=== PATIENT | male | born 1950 | race Caucasian/White ===

== ENCOUNTER → 2018-06-01 11:43 | Outpatient (CLI) | payer MEDICARE, OTHER, SELFPAY ==
[2018-06-03 14:21] LABS: Fecal Immunochemical Test NOT DETECTED
== END ==
PROVIDERS: PCP Family Medicine; Visit Provider Family Medicine
DX: Z12.11 Encounter for screening for malignant neoplasm of colon (principal)
CPT/HCPCS: 82274

== ENCOUNTER → 2019-10-07 10:04 | Outpatient (CLI) | payer MEDICARE, OTHER, SELFPAY ==
--- NOTE | 2019-10-07 10:07 | DI.RAD.S_ITS ---
PROCEDURE: XR CHEST 2V INDICATIONS: Shortness of breath TECHNIQUE: 2 views of the chest were acquired. COMPARISON: None. FINDINGS: Surgical changes and devices: None. Lungs and pleura: Elevation of the right hemidiaphragm. Scattered subsegmental atelectasis and/or scarring. No focal consolidation. No pleural effusions or pneumothorax. Mediastinum: Mediastinal contours are normal. Heart size is normal. Bones and chest wall: No suspicious bony abnormalities. Soft tissues appear unremarkable. IMPRESSION: Scattered subsegmental atelectasis and/or scarring. No focal consolidation. Dictated by: Sascha Horne M.D. on 10/07/2019 at 10:31 Approved by: Sascha Horne M.D. on 10/07/2019 at 10:32
== END ==
PROVIDERS: PCP Family Medicine; Referring Provider Registered Nurse; Visit Provider Registered Nurse
DX: R06.02 Shortness of breath (principal)
CPT/HCPCS: 71046

== ENCOUNTER → 2019-12-23 10:46 | Outpatient (CLI) | payer MEDICARE, OTHER, SELFPAY ==
--- NOTE | 2019-12-23 10:49 | DI.RAD.S_ITS ---
PROCEDURE: XR CHEST 2V INDICATIONS: atelectasia vs scaring with wheezing at night TECHNIQUE: 2 views of the chest were acquired. COMPARISON: [facility], CR, XR CHEST 2V, 10/07/2019, 10:14. FINDINGS: Surgical changes and devices: None. Lungs and pleura: Low lung volumes are noted. This causes a crowded appearance to the lung markings and limits evaluation. Elevation of the right hemidiaphragm is again seen. Generalized interstitial prominence is seen. No focal infiltrates are seen. No pneumothorax or pleural effusions are seen. Mediastinum: The cardiac contours are within normal limits. The aorta demonstrates calcification and tortuosity. Bones and chest wall: Age-appropriate bony degenerative changes are seen. No suspicious bony abnormalities. Soft tissues appear unremarkable. IMPRESSION: Low lung volumes with interstitial prominence. Differential diagnosis includes artifact or a incomplete inspiratory result and mild pulmonary edema. There is continued elevation the right hemidiaphragm. If there is strong clinical concern for paralysis of this hemidiaphragm, please consider a dedicated fluoroscopic sniff test for further evaluation. Dictated by: Diego Good M.D. on 12/23/2019 at 10:58 Approved by: Diego Good M.D. on 12/23/2019 at 11:00
== END ==
PROVIDERS: PCP Family Medicine; Referring Provider Family Medicine; Visit Provider Family Medicine
DX: J98.4 Other disorders of lung (principal); R06.2 Wheezing
CPT/HCPCS: 71046

== ENCOUNTER → 2020-01-10 10:42 | Outpatient (CLI) | payer MEDICARE, OTHER, SELFPAY ==
[2020-01-11 15:55] LABS: COVID19 Sendout NOT DETECTED (Not Detect)
== END ==
PROVIDERS: PCP Family Medicine; Visit Provider Registered Nurse
DX: Z01.812 Encounter for preprocedural laboratory examination (principal)
CPT/HCPCS: 87635

== ENCOUNTER → 2020-01-11 09:32 | Outpatient (CLI) | payer MEDICARE, OTHER, SELFPAY ==
[2020-01-11 11:04] LABS: Hematocrit 49.2 % (41-53); Hemoglobin 16.7 g/dL (13.5-17.5)
== END ==
PROVIDERS: PCP Family Medicine; Referring Provider Family Medicine; Visit Provider Family Medicine
DX: Z01.812 Encounter for preprocedural laboratory examination (principal)
CPT/HCPCS: 36415; 85014; 85018

== ENCOUNTER → 2020-01-13 07:59 | Outpatient (CLI) | payer MEDICARE, OTHER, SELFPAY ==
--- NOTE | 2020-01-19 10:30 | PM.PFT.1 ---
Pulmonary Function Test Referral & Results Date Patient Seen: 01/13/20 Requesting provider: Howard Mcduffie Results: The spirometry demonstrates an FVC of 2.76 L which is 72% of predicted. The FEV1 was measured at 2.36 L which is 84% of predicted. The FEV1/FVC ratio was 86 which is 115% of predicted. Following the administration of bronchodilator there was no change. Lung volumes show an SVC of 2.96 L which is 73% of predicted. The diffusing capacity was measured at 24.03 which is 89% of predicted. The maximum voluntary ventilation was normal Interpretation: This study demonstrates perhaps mild obstructive lung disease based on minimal reduction in FEV1. No evidence of improvement following bronchodilator There is a slightly more significant reduction in lung volumes suggesting more significant restrictive lung disease present Clinical correlation suggested
== END ==
PROVIDERS: PCP Family Medicine; Referring Provider Family Medicine; Visit Provider Family Medicine
DX: R06.02 Shortness of breath (principal); R06.2 Wheezing; J98.4 Other disorders of lung
CPT/HCPCS: 94060; 94726; 94729

== ENCOUNTER → 2021-11-20 12:40 | Outpatient (CLI) | payer MEDICARE, OTHER, SELFPAY ==
[2021-11-21 16:53] LABS: Tissue Transglutaminase IgA <2 U/mL (0-3); Tissue Transglutaminase IgG 2 U/mL (0-5)
== END ==
PROVIDERS: PCP Family Medicine; Referring Provider Internal Medicine Gastroenterology; Visit Provider Internal Medicine Gastroenterology
DX: R19.7 Diarrhea, unspecified (principal)
CPT/HCPCS: 36415; 83516

== ENCOUNTER → 2021-12-12 09:21 | Outpatient (CLI) | payer MEDICARE, OTHER, SELFPAY ==
--- NOTE | 2021-12-13 17:22 | DIAB.MNT ---
Initial Diabetes Medical Nutrition Therapy Assessment Name: Patrick Ortiz Date: 12/12/21 Time: 930-11a Dx: Type II Diabetes Provider: Froy Starr Learning Style: yordan Nguyen presents for initial visit with his , [place]. Reports new dx of T2DM. +FH with both parents. Recently labs indicate elevated FBG of 137 mg/dL and HgA1c of 6.8%. Also endorses significant nutrition hx with severe diarrhea (IBS-D) since he was in his 30s. Has never seen a dietitian. Has seen GI before without much improvement. Plans to see GI at . Reports he has seen a therapist and hypnotist for this as well. Diarrhea truly seems to dictate his day. If he is leaving the house, he skips meals. Always aware of where the next bathroom is. Reports that he use to live on sugar and junk food prior to diagnosis. Seems processed carbs were easier to digest in terms of diarrhea. Has since cut refined sugar out completely. Continued frequent fast food intake. h/o HLD, does not want to take a statin. Feels that they are not healthy to take. FH of heart disease. Limited knowledge about DM. He and his plan to complete entire DSME program. 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 No program. Self-Monitoring Blood Glucose: No meter. No BG checks. Does not want to check BG. Diabetes Medications: Metformin 500mg Pertinent Labs: HgA1c 6.8% Cholesterol: 291 H T H HDL: 37 L LDL: 202 H Past Medical History: (Last Updated 03/24/18 @ 17:01 by Harper Gomez) Anxiety Chicken pox Eczema Foot pain History of hand surgery Trigger point - left 3 fingers IBS (irritable bowel syndrome) Measles Mumps Plantar fasciitis, bilateral Plantar warts Rotator cuff tear Bilateral Skin cancer (2014) Status post bilateral foot surgery Plantar fasciitis Trigger point of extremity Left 3 fingers Nutrition Rx: 1600kcals ; Carbohydrates: Meal:30-45g Snack:15-30g Nutrition Diagnosis: - Excessive saturated fat intake r/t fast food intake aeb diet recall and elevated LDL - Excessive sodium intake r/t fast food intake aeb diet recall - Nutrition and food related knowledge deficit r/t new dx T2DM aeb HgA1c >6.5% - Physical inactivity r/t no program currently, stage of change preparation aeb pt report Intervention: This participant was very receptive. Provided appropriate educational handouts. Discussed the following topics: Completed intake assessment. Discussed barriers to care. Pathophysiology of T2DM HgA1c, its correlation to blood glucose numbers, and rationale for goal Benefit of SMBG if he would like more information in the future about his BG Plate Method, impact of macronutrients on blood sugar, meal timing, carbohydrate counting, pairing macronutrients and spreading out carbohydrates for better blood glucose management Recommended servings for carbohydrates at meals and snacks Heart health nutrition in detail: saturated fats, sodium, eating out= Role of physical activity Nutrition therapy for IBS-D: FODMAPS discussed as a potential trial Created SMART goals for patient self-care and success. Goals: Aim for 30-45g CHO per meal Consider reduction eating out Exercise 20-30 minutes daily Check out FODMAP online resources Follow-up: WILL MURILLO follow-up in class 1 next month. Plans to attend 3 class series. Will then f/u 1:1. Radha Erwin RDN, [facility] Certified Diabetes Care and Legal Counsel P: [phone] Thank you for this referral
== END ==
PROVIDERS: PCP Family Medicine; Referring Provider Family Medicine; Visit Provider Family Medicine
DX: E11.65 Type 2 diabetes mellitus with hyperglycemia (principal); Z79.84 Long term (current) use of oral hypoglycemic drugs; Z71.3 Dietary counseling and surveillance
CPT/HCPCS: 97802

== ENCOUNTER → 2022-01-08 09:19 | Outpatient (CLI) | payer MEDICARE, OTHER, SELFPAY ==
--- NOTE | 2022-01-10 14:31 | DIAB.FU ---
Diabetes Education Class Series: Diabetes and Nutrition Name: Patrick Ortiz Date: 01/10/22 Time: 940-11a Dx: Type II Diabetes Patrick attended class with , [place]. States he has been working on avoiding sweets. Did seem to learn he could add back some foods, ie carrots, beets, whole grains. Patrick had to leave class early today due to miscommunication about class length and prepping for colonoscopy. Class topics covered: ? Debunk nutrition myths and discuss how to sustain healthy eating long-term through moderation and variety ? Define macronutrients and determine their impact on blood sugars ? Discuss macronutrient pairing, Plate Method, and carb counting ? Review general recommendations for carbohydrates ? Practice label reading ? Discuss the role of fiber in diabetes and provide examples of sources ? Review heart health nutrition: fats, fiber, and sodium Follow-up: Diabetes Physiology and Medication Class in one week Radha Erwin RDN, [facility] Certified Diabetes Care and Coil Maker P: [phone] Thank you for this referral
== END ==
PROVIDERS: PCP Family Medicine; Referring Provider Family Medicine; Visit Provider Family Medicine
DX: E11.9 Type 2 diabetes mellitus without complications (principal); Z71.3 Dietary counseling and surveillance
CPT/HCPCS: G0109

== ENCOUNTER 2022-01-09 08:24 | Day surgery (SDC) | payer MEDICARE, OTHER, SELFPAY ==
[2022-01-09] VITALS (9 sets, daily range): BP systolic 109–189; BP diastolic 59–96; PULSE 48–52; RESP 14–19; TEMP 36.4–37.1; O2SAT 94–98; BMI 29.3
--- NOTE | 2022-01-09 | PATH_ITS ---
[facility] Accession Number: [id number] . 01 Material submitted: . PART A: colon - RIGHT COLON PART B: colon - LEFT COLON . 01 Clinical history: . A-B: R/O MICROSCOPIC COLITIS . 01 Diagnosis: A-B. Right Colon, Left Colon, Biopsies: Colonic mucosa with no diagnostic abnormality. Negative for active, chronic, and microscopic colitis. Negative for dysplasia and malignancy. . MRV 01/14/2022 1725 Local . 01 Electronically signed: . Lola Erazo MD, Pathologist NPI- [id number] . 01 Gross description: . Part A: RIGHT COLON: Received in formalin are 4 fragment(s) of gutiérrez, soft tissue measuring 0.5 x 0.1 x 0.1 cm to 0.2 x 0.2 x 0.1 cm submitted entirely in 1 cassette(s) Part B: LEFT COLON: Received in formalin are multiple fragment(s) of gutiérrez, soft tissue measuring 0.8 x 0.4 x 0.1 cm in aggregate submitted entirely in 1 cassette(s) /CPE 01/10/2022 0653 Local . 01 Pathologist provided ICD-10: R10.9 . 01 CPT . 956993, [id number] Performed at: 01 [facility] [address] [place] [address] [address], [place], [place] [id number] MD Brenden Hooks MD Phone: [phone]
[2022-01-09] MEDS: LACTATED RINGERS 1,000 ML 100 ML IV (08:56)
--- NOTE | 2022-01-09 09:48 | PM.HP.1 ---
History of Present Illness History of Present Illness Date Patient Seen: 01/09/22 Time Patient Seen: 09:48 Chief complaint: SDC Narrative: Patient is a pleasant 71-year-old male who presented for colonoscopy. He was seen in the office for diarrhea with significant fecal urgency. At times he has had fecal incontinence. He has still been having intermittent symptoms since that time. His last colonoscopy was performed at least 20 years ago. He is overdue for surveillance. Patient History Medical History Anxiety Chicken pox Eczema Foot pain IBS (irritable bowel syndrome) Measles Mumps Plantar fasciitis, bilateral Plantar warts Rotator cuff tear Skin cancer (2015) Trigger point of extremity Surgical History (Updated 03/24/18 @ 16:58 by Harper Gomez) Anesthesia History of hand surgery Status post bilateral foot surgery Status post rotator cuff repair Family & Social History Family History (Updated 02/21/16 @ 00:00 by Conversion Provider) Father Diabetes mellitus Hypertension High cholesterol Stroke Brother No problems noted. Brother No problems noted. Mother No problems noted. Social History: household members spouse Tobacco & Substance use: Smoking Status Never smoker alcohol intake never Substance Use Type does not use Meds Home Medications and Allergies Home Medications Medication Instructions Recorded Confirmed Type lisinopril 20 mg tablet 20 mg PO QDAY #90 tab 11/01/21 01/09/22 Rx metformin 500 mg tablet 500 mg PO DAILY #90 tab 11/01/21 01/09/22 Rx Allergies Allergy/AdvReac Type Severity Reaction Status Date / Time lactase [From Dairy Aid] Allergy [place] Verified 01/09/22 08:57 Review of Systems Review of Systems ROS: Yes All systems reviewed with the patient and are negative except as otherwise documented Exam Vital Signs (past 8 hours): - 01/09/22 08:58 Temperature 98.8 F Blood Pressure 189/96 H Oxygen Delivery Method Room Air Const General: cooperative, healthy appearing, comfortable, well developed, well groomed and No acute distress HENMT Head: normocephalic and atraumatic Resp Effort & Inspection: normal respiratory effort and able to speak in complete sentences Auscultation: clear to auscultation bilaterally Cardio Rate: regular rate Rhythm: regular rhythm GI Palpation: soft Extrem General: no clubbing, cyanosis or edema Assessment & Plan Assessment & Plan narrative: 1. Diarrhea with fecal urgency 2. Colon cancer screening Colonoscopy today, further recommendations to follow Time Spent With Patient Critical Care time: I spent a total of [] minutes of critical care time on this patient's care today; this time is exclusive of procedural time.
--- NOTE | 2022-01-09 10:23 | P.OP.COLON_ITS ---
Operative Date/Time/Diagnoses Date of procedure: 01/09/22 Time of procedure: 09:58 Procedure Notes Procedure in detail: Surgeon: Lesley Saldaña DO Procedure: Colonoscopy with biopsy Preoperative diagnosis: 1. Diarrhea 2. Screening colonoscopy, last colonoscopy >10 years ago Postoperative diagnosis: 1. Normal colon mucosa, biopsy to rule out microscopic 2. Grade 1 internal hemorrhoids 3. Normal appearing terminal ileum Medications: Monitored anesthesia care Preanesthesia Assessment An H and P was performed/updated and the Px?s ASA class is 3. The procedure was discussed in detail with the patient. The potential risks and complications in cluding infection, bleeding, missed lesions, perforation, need for surgery in case of perforation, prolonged hospital stay, and were explained. A brief question and answer period was allotted and once all questions were answered, informed consent was obtained. The patient was brought back to the procedure room and placed on standard monitoring. The patient?s vital signs were monitored continuously throughout the entire procedure. Prior to starting, a timeout was performed to confirm the patient?s identity, allergies, medications, and procedure. Procedure in detail The patient was placed in left lateral decubitus position and once adequate sedation was obtained a TONY was performed. The digital rectal examination did not reveal any palpable lesions. The tip of the colonoscope was placed in the anal canal and advanced without difficulty all the way to the cecum which was identified by the appendiceal orifice and the ileocecal valve. Terminal ileal intubation was achieved with normal appearing TI. Careful examination of all meehan of the colon was performed with irrigation of any residual stool. Colon mucosa appeared unremarkable. Biopsies of the left and right colon were obtained to rule out microscopic colitis. Grade 1 internal hemorrhoids were noted on retroflexion. The patient tolerated the procedure well and will be brought back to the recovery area to be discharged once criteria are met. The prep was judged to be good/excellent and adequate to identify polyps less than 5 mm. The withdrawal time was 11min. Complications There were no complications and estimated blood loss was minimal. Recommendations: Resume previous diet Continue outPx medications Follow up pathology results Repeat colonoscopy in 10 years for screening Office follow up to be scheduled An emergency contact number was given to the patient for any complications related to the procedure
--- NOTE | 2022-01-09 11:13 | SUR.PHASEII ---
Phase II care, other that IV DC, provided by Blanca Driver RN
== END 2022-01-09 11:12 | disposition home or self-care (01) ==
PROVIDERS: PCP Family Medicine; Referring Provider Student in an Organized Health Care Education/Training Program; Visit Provider Student in an Organized Health Care Education/Training Program
PROC: 0DJD8ZZ Inspection of Lower Intestinal Tract, Via Natural or Artificial Opening Endoscopic (ICD-10-PCS; CPT 45378; principal; 2022-01-09 10:00)
DX: R19.7 Diarrhea, unspecified (principal); E11.9 Type 2 diabetes mellitus without complications; Z79.84 Long term (current) use of oral hypoglycemic drugs; I10 Essential (primary) hypertension; F41.9 Anxiety disorder, unspecified; K64.0 First degree hemorrhoids
CPT/HCPCS: 45380; 82962; J2704

== ENCOUNTER → 2022-10-10 18:11 | Outpatient (CLI) | payer OTHER, MEDICARE, SELFPAY ==
--- NOTE | 2022-10-10 18:12 | DI.RAD.S_ITS ---
PROCEDURE: XR HAND LT MIN 3V INDICATIONS: Left hand middle finger injury TECHNIQUE: Three views of the left hand acquired. COMPARISON: None. FINDINGS: Bones: No fractures or dislocations. There is mild degeneration of the 3rd distal interphalangeal joint. Carpal bones are normally aligned. No suspicious bony lesions. Soft tissues: No suspicious soft tissue calcifications. IMPRESSION: 1. No fracture or dislocation. Dictated by: Brenden Hoff M.D. on 10/10/2022 at 20:24 Approved by: Brenden Hoff M.D. on 10/10/2022 at 20:29
== END ==
PROVIDERS: PCP Family Medicine; Referring Provider Registered Nurse; Visit Provider Registered Nurse
DX: M79.642 Pain in left hand (principal)
CPT/HCPCS: 73130

== ENCOUNTER 2024-10-10 11:46 | Emergency (ER) | payer MEDICARE, OTHER, SELFPAY ==
[2024-10-10 11:51] VITALS: BP 151/73; PULSE 54; RESP 16; TEMP 36.3; O2SAT 96; BMI 27.7
--- NOTE | 2024-10-10 11:54 | DI.RAD.S_ITS ---
PROCEDURE: XR FOOT LT MIN 3V INDICATIONS: pain after stepping on pine cone TECHNIQUE: 3 views of the foot were acquired. COMPARISON: None. FINDINGS: Bones: No fractures or dislocations. No suspicious bony lesions. Mild dorsal midfoot degenerative changes are shown. Soft tissues: No tibiotalar joint effusion. And Achilles insertional enthesophyte is present. There is a well-corticated ossified body within the plantar fascia which likely represents enthesopathy. IMPRESSION: No acute bony abnormality. Dictated by: Maritza Wharton M.D. on 10/10/2024 at 11:22 Approved by: Maritza Wharton M.D. on 10/10/2024 at 11:25
--- NOTE | 2024-10-10 13:57 | ED_ITS ---
HPI - Extremity Injury (Lower) <Iqra Powell PA-C - Last Filed: 10/10/24 14:17> General Chief Complaint: Extremity Injury, Lower Stated Complaint: left foot pain Time Seen by Provider: 10/10/24 13:49 Source: patient Mode of arrival: Ambulatory History of Present Illness HPI Narrative: Mr. Patrick Ortiz is a very pleasant 74-year-old male with a past medical history of hypertension, diabetes, prior bilateral plantar fascia surgery who presents to the emergency department for left foot pain after stepping on a pine cone 3 days ago. Patient was stepping out of his truck, he had shoes on, when he accidentally stepped onto a pine cone. He has had pain in the bottom of his left foot since then. Pain is worse when he steps out of bed in the morning however it also bothers him at night. He is taken ibuprofen without resolution of the pain. He denies any numbness, tingling weakness or wounds. 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 Related Data Previous Rx's Medication Instructions Recorded triamcinolone acetonide 0.1 % See Rx Instructions topical BID 01/07/23 topical cream #30 grams lisinopril 20 2 tab PO DAILY #180 tabs 07/06/24 mg-hydrochlorothiazide 12.5 mg tablet metformin 500 mg tablet 500 mg PO DAILY #90 tabs 07/19/24 Allergies Allergy/AdvReac Type Severity Reaction Status Date / Time lactase [From Dairy [employer]] Allergy [place] Verified 10/10/24 11:51 Review of Systems <Iqra Powell PA-C - Last Filed: 10/10/24 14:17> Review of Systems ROS Unobtainable: All systems reviewed & are unremarkable except as noted in HPI and below Patient History <Iqra Powell PA-C - Last Filed: 10/10/24 14:17> Medical History Chicken pox IBS (irritable bowel syndrome) Measles Mumps Eczema Plantar warts Foot pain Anxiety Rotator cuff tear Skin cancer (2014) Trigger point of extremity Plantar fasciitis, bilateral Surgical History Status post bilateral foot surgery History of hand surgery Anesthesia Status post rotator cuff repair Family History Father Diabetes mellitus Hypertension High cholesterol Stroke Brother No problems noted. Brother No problems noted. Mother No problems noted. Social History marital status: household members: spouse Smoking Status: Never smoker alcohol intake: never substance use type: does not use Smoking Status: Never smoker Exam <Iqra Powell PA-C - Last Filed: 10/10/24 14:17> Narrative Exam Narrative: GENERAL: 74 year old patient appears stated age. Well-developed patient, in no acute distress. HEAD: Atraumatic. Normocephalic. RESPIRATORY: ?Nonlabored respirations. ?Speaking in clear, full sentences. EXTREMITIES: Strong DP and PT pulses bilaterally and brisk capillary refill in all the toes. Patient has tenderness to palpation of the left plantar midfoot with no deformities or skin changes. No tenderness to palpation of the dorsal aspect of the foot. He still is able to wiggle the toes and dorsiflex and plantar flex the foot without difficulty. Sensation is intact to light touch on all the toes. NEURO: AOx3. ?Clear speech. ?Moves all 4 extremities appropriately. SKIN: No rash or erythema of visible areas Initial Vital Signs Initial Vital Signs: Vital Signs Temperature 97.3 F L 10/10/24 11:51 Pulse Rate 54 L 10/10/24 11:51 Respiratory Rate 16 10/10/24 11:51 Blood Pressure 151/73 H 10/10/24 11:51 Pulse Oximetry 96 10/10/24 11:51 Oxygen Delivery Method Room Air 10/10/24 11:51 <Sheree Barahona DO - Last Filed: 10/11/24 10:00> Initial Vital Signs Initial Vital Signs: Vital Signs Temperature 97.3 F L 10/10/24 11:51 Pulse Rate 54 L 10/10/24 11:51 Respiratory Rate 16 10/10/24 11:51 Blood Pressure 151/73 H 10/10/24 11:51 Pulse Oximetry 96 10/10/24 11:51 Oxygen Delivery Method Room Air 10/10/24 11:51 Course <Iqra Powell PA-C - Last Filed: 10/10/24 14:17> Orders Ordered: ED Orders 10/10/24 11:54 XR foot LT min 3V Stat Vital Signs Vital signs: Vital Signs - 8 hr 10/10/24 11:51 Temperature 97.3 F L Pulse Rate 54 L Respiratory Rate 16 Blood Pressure 151/73 H Pulse Oximetry 96 Oxygen Delivery Method Room Air <Sheree Barahona DO - Last Filed: 10/11/24 10:00> Orders Ordered: ED Orders 10/10/24 11:54 XR foot LT min 3V Stat Vital Signs Vital signs: Vital Signs - 8 hr 10/10/24 11:51 Temperature 97.3 F L Pulse Rate 54 L Respiratory Rate 16 Blood Pressure 151/73 H Pulse Oximetry 96 Oxygen Delivery Method Room Air MDM - Extremity Injury (Lower) <Iqra Powell PA-C - Last Filed: 10/10/24 14:17> Medical Records Attestation: I reviewed the patient's medical records. Imaging Data Left Foot X-Ray: Radiologist's Impression: PROCEDURE: XR FOOT LT MIN 3V INDICATIONS: pain after stepping on pine cone TECHNIQUE: 3 views of the foot were acquired. COMPARISON: None. FINDINGS: Bones: No fractures or dislocations. No suspicious bony lesions. Mild dorsal midfoot degenerative changes are shown. Soft tissues: No tibiotalar joint effusion. And Achilles insertional enthesophyte is present. There is a well-corticated ossified body within the plantar fascia which likely represents enthesopathy. IMPRESSION: No acute bony abnormality. MDM Narrative Medical decision making narrative: 74-year-old male with a past medical history of hypertension, diabetes, prior bilateral plantar fascia surgery who presents to the emergency department for left foot pain after stepping on a pine cone 3 days ago. Differential diagnosis includes but is not limited to fracture, contusion, sprain, strain, plantar fasciitis, etc. On exam the patient is in no acute distress, nontoxic appearing, bilateral feet neurovascularly intact. He has no wounds or deformities on the plantar aspect of the left foot but he does have subjective pain and tenderness palpation. Left foot x-ray obtained in triage. X-ray reveals no acute bony abnormality however there is a well corticated ossified body with the plantar fascia which likely represents enthesopathy, patient does have a history of plantar fasciitis surgery. Suspect strain of the plantar fascia from stepping on the pine cone. 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 Patient declines the need for pain medication in the ED. A left foot Rober wrap was applied for support. He declines the need for crutches. We discussed signs and symptoms to return to ED immediately for. He verbalized understanding of all information is agreeable with the plan. He is stable for discharge home. Discharge Plan Departure Patient Disposition: Home Clinical Impression: Acute pain of left foot, Enthesopathy of left foot Instructions: DI for Foot Pain Activity Restrictions/Additional Instructions: Dear Mr. Ortiz, Thank you for coming to the emergency department today. Your left foot x-ray reveals no fractures. I would like you to rest, take ibuprofen and acetaminophen, and follow up with your primary care doctor. If you have persistent pain please follow up with your network operations lead. Please take Ibuprofen (Motrin/Advil) or Acetaminophen (Tylenol) for pain. These are available over the counter. You may take these medications together. You may take Ibuprofen 400mg every 6 hours or 600 mg every 8 hours with food for pain. You may also take Acetaminophen 650 mg every 4-6 hours for pain or 1000mg every 8 hours. Do not exceed 3000 mg of Tylenol a day as this can cause liver damage. Do not drink alcohol with either of these medications. Please use RICE therapy for your pain in addition to ibuprofen/acetaminophen. Rest the painful area. Ice the area of pain/swelling for at least 15 minutes, 4x a day. Compress the area of swelling using a brace, wrap, or splint if applied. Elevate the painful or swollen extremity by supporting it above the level of the heart with pillows when sitting or laying. Please follow up with your primary care doctor within the next 2-3 days for ER follow-up. (If you do not have a PCP you can call [phone]. ?to schedule an appointment with an [facility] Primary Care Provider) IF YOU DEVELOP ANY NEW OR WORSENING SYMPTOMS, RETURN TO THE ER! Please read the attached instructions, they highlight more specific treatments and interventions for you at home. Thank you for letting me participate in your care, Iqra Powell PA-C Prescriptions: No Action triamcinolone acetonide 0.1 % cream See Rx Instructions topical BID Qty: 30 1RF Rx Instructions: 1 mg topically bid TOP BID lisinopril-hydrochlorothiazide 20-12.5 mg tablet 2 tab PO DAILY Qty: 180 3RF metformin 500 mg tablet 500 mg PO DAILY Qty: 90 3RF Referrals: Howard Mcduffie MD [Primary Care Provider] - Stand Alone Forms: Patient Portal/API/Survey ED Sign-out <Sheree Barahona DO - Last Filed: 10/11/24 10:00> Cosign ED Attending Kat[place] Attestation: I was available for consultation.
[2024-10-10 14:14] VITALS: BP 140/69; PULSE 55; RESP 16; O2SAT 96
[2024-10-10 14:22] VITALS: BP 167/85
== END 2024-10-10 14:23 | disposition home or self-care (01) ==
PROVIDERS: Emergency Provider Physician Assistant; PCP Family Medicine
DX: M79.672 Pain in left foot (principal); M77.8 Other enthesopathies, not elsewhere classified; X58.XXXA Exposure to other specified factors, initial encounter
CPT/HCPCS: 73630; 99282; 99283

== ENCOUNTER → 2025-06-25 08:45 | Outpatient (CLI) | payer MEDICARE, OTHER, SELFPAY ==
[2025-06-25 10:07] LABS: Blood Urea Nitrogen 28 mg/dL (9-20); Calcium 9.7 mg/dL (8.4-10.2); Carbon Dioxide 23 mmol/L (22-32); Chloride 107 mmol/L (98-107); Cholesterol 163 mg/dL (140-199); Estimated Glomerular Filt Rate > 60 mL/min (>60); Glucose 123 mg/dL (70-99); HDL Cholesterol 42 mg/dL (40-60); HEMOLYSIS < 15 (0-50); Potassium 5.2 mmol/L (3.4-5.1); Sodium 141 mmol/L (137-145); Triglycerides 139 mg/dL (35-150)
[2025-06-25 10:09] LABS: Hemoglobin A1C% w Est Avg Glu 5.7 % (4.0-6.0)
== END ==
PROVIDERS: PCP Family Medicine; Referring Provider Family Medicine; Visit Provider Family Medicine
DX: E11.8 Type 2 diabetes mellitus with unspecified complications (principal); E78.00 Pure hypercholesterolemia, unspecified; I10 Essential (primary) hypertension
CPT/HCPCS: 36415; 80048; 80061; 83036

== ENCOUNTER → 2025-08-02 14:31 | Outpatient (CLI) | payer MEDICARE, OTHER, SELFPAY ==
--- NOTE | 2025-08-02 14:32 | DI.MRI.S_ITS ---
PROCEDURE: MR SHOULDER LT WO CON INDICATIONS: r/u RTC tear TECHNIQUE: Noncontrast oblique coronal T2 fast spin echo with fat saturation, oblique sagittal T1 spin echo and T2 fast spin echo with fat saturation, axial T1 spin echo and T2 fast spin echo with fat saturation through the shoulder. COMPARISON: None. FINDINGS: Quality: Adequate. Tendons: Rotator cuff tendons: Full-thickness full width supraspinatus tendon tear at the insertion with approximately 2.0 cm of retraction and additional delaminating tearing continuing to the medial humeral head. Less than 50% thickness articular insertional tear of the infraspinatus tendon. Teres minor tendon is intact. Full-thickness tear of the superior 3rd of the subscapularis tendon. Long head of biceps tendon: Complete tear within the rotator interval. Muscles: No disproportionate fatty degeneration of the rotator cuff musculature. Acromioclavicular joint: Moderate degenerative arthritis. Small effusion. Glenohumeral joint: Labrum: Superior labral tearing.. Cartilage: No focal defect. Marginal osteophyte formation in the glenoid rim. Fluid: Moderate effusion. Capsule: No pericapsular inflammation or scarring. Alignment: No dislocation. Bursa: Subacromial/subdeltoid bursa: Trace fluid. Subcoracoid bursa: Nondistended. Bones: No fracture. IMPRESSION: Full-thickness full width supraspinatus tendon tear. Intermediate grade partial thickness infraspinatus tendon tear. Full-thickness partial width subscapularis tendon tear. Complete rupture of long head of biceps tendon. Moderate acromioclavicular osteoarthritis with effusion. Mild glenohumeral osteoarthritis. Moderate glenohumeral effusion. Dictated by: Ruperto Rhoades M.D. on 08/03/2025 at 10:26 Approved by: Ruperto Rhoades M.D. on 08/03/2025 at 10:32
== END ==
LOC: MRI 14:32
PROVIDERS: PCP Family Medicine; Referring Provider Orthopaedic Surgery; Visit Provider Orthopaedic Surgery
DX: M75.122 Complete rotator cuff tear or rupture of left shoulder, not specified as traumatic (principal); M75.42 Impingement syndrome of left shoulder; S46.112A Strain of muscle, fascia and tendon of long head of biceps, left arm, initial encounter; M19.012 Primary osteoarthritis, left shoulder; M25.412 Effusion, left shoulder
CPT/HCPCS: 73221